=== PATIENT | female | born 1975 | race Caucasian/White ===

== ENCOUNTER 2023-10-11 07:29 | Day surgery (SDC) | payer OTHER ==
[~2023-10-11] VITALS: Ht 162.6 cm; Wt 79.1 kg
[2023-10-11] MEDS ORDERED: DIPHENHYDRAMINE INJ 50 MG/ML VIAL ONE (07:50)
[2023-10-11] MEDS ORDERED: NORMAL SALINE 10 ML VIAL ONE (10:00)
[2023-10-11] MEDS ORDERED: LIDOCAINE 2%, 20 ML MDV ONE (10:00)
[2023-10-11] MEDS ORDERED: iopamidoL 50 ML VIAL IV ONE (10:00)
[2023-10-11] MEDS ORDERED: methylPREDNISolone ACETATE 40 MG/ML ONE (10:00)
[2023-10-11] MEDS: fentaNYL CITRATE/PF 100 MCG/2 ML AMP ONE (10:38)
[2023-10-11] MEDS: MIDAZOLAM HCL 5 MG/5 ML VIAL ONE (10:40)
[2023-10-11 14:42] VITALS: O2SAT 100
[2023-10-11 17:30] VITALS: BP_SYST 125; PULSE 81; RESP 18
== END 2023-10-11 11:43 | disposition home or self-care (01) ==
LOC: SDS 07:29 → SMU 07:31 → SDS 11:43
PROVIDERS: ATTEND Internal Medicine
DX: M54.12 Radiculopathy, cervical region (principal); M79.10 Myalgia, unspecified site; M96.1 Postlaminectomy syndrome, not elsewhere classified; Z90.710 Acquired absence of both cervix and uterus; Z98.890 Other specified postprocedural states; Z79.899 Other long term (current) drug therapy
CPT/HCPCS: 62321; J1030; J2250; J3010; Q9967; 76000; J1200; J2001